=== PATIENT | female | born 1990 | race Caucasian/White ===

== ENCOUNTER 2018-02-01 11:33 | Inpatient (IN) ==
[2018-02-01] MEDS ORDERED: MEPERIDINE 50 MG/1 ML VIAL IM ONE (12:46)
[2018-02-01] MEDS ORDERED: ONDANSETRON 4 MG/2 ML VIAL IV PRN ×2 (15:55→19:34)
[2018-02-01] MEDS ORDERED: MEPERIDINE 50 MG/1 ML VIAL IV PRN (15:56)
[2018-02-01] MEDS ORDERED: LACTATED RINGERS 1,000 ML IV SCH ×2 (16:00→20:00)
[2018-02-01] MEDS ORDERED: CITRIC ACID/SODIUM CITRATE 30 ML UDCUP PO ONE (19:38)
[2018-02-01] MEDS ORDERED: PROMETHAZINE 25 MG/1 ML VIAL IM ONE (19:38)
[2018-02-01] MEDS ORDERED: FAMOTIDINE 20 MG/2 ML VIAL IV ONE (19:38)
[2018-02-01] MEDS ORDERED: ePHEDrine 50 MG/ML AMP IV PRN (19:38)
[2018-02-01] MEDS ORDERED: diphenhydrAMINE 50 MG/1 ML VIAL IV PRN ×2 (19:38)
[2018-02-01] MEDS ORDERED: LACTATED RINGERS 1,000 ML IV ONE (19:38)
[2018-02-01] MEDS ORDERED: hydrOXYzine HCL 25 MG/1 ML VIAL IM PRN (19:38)
[2018-02-01] MEDS ORDERED: fentaNYL 2 MCG/ROPIV 0.2% EPID 150 ML EPIDURAL SCH (20:00)
[2018-02-01 20:11] LABS: Basophils % 0.2 % (0.0-0.8); Hematocrit 38.4 VOL% (35.7-47.0); Hemoglobin 13.3 GM/DL (12.0-16.0); Immature Granulocytes % 0.5 %; Immature Granulocytes Absolute 0.09 #; Lymphocytes # 1.8 10*3/uL (1.4-4.0); Lymphocytes % 9.6 % (21.3-54.2); Mean Corpuscular HGB Conc 34.6 GM/DL (32-36); Mean Corpuscular Hemoglobin 30 PG (27-34); Mean Corpuscular Volume 87.9 FL (87-102); Mean Platelet Volume 11.5 FL (9.6-12.0); Monocytes # 0.5 10*3/uL (0.11-0.8); Monocytes % 2.8 % (1.7-12.7); Neutrophils # 15.9 10*3/uL (1.4-7.4); Neutrophils % 86.9 % (38.7-73.9); Platelet Count 251 T/CUMM (130-400); Red Blood Count 4.37 MC/CUMM (3.8-5.5); Red Cell Distribution Width 13.5 % (9.3-17.3); White Blood Count 18.3 T/CUMM (4-12)
[2018-02-01 20:54] LABS: Albumin 3.2 G/DL (3.4-5.0); Bilirubin,Total 1.1 MG/DL (0.2-1.0); Calcium 9.2 MG/DL (8.5-10.1); Osmolality,Calculated 269.8 MOS/KG (273-304); Potassium 4.4 MMOL/L (3.5-5.1); Total Protein 7.4 G/DL (6.4-8.3)
[2018-02-01] MEDS: OXYTOCIN/LR 20 UNIT/1,000 ML BAG IV SCH (21:50)
[2018-02-01 22:18] LABS: Apearance,Urine CLEAR (Clear); Bilirubin,Urine Negative (Negative); Blood, Urine Negative (Negative); Glucose,Urine (UA) Negative (Negative); Ketones,Urine 20 mg/dL (Negative); Mucus,Urine Occasional /LPF (Occasional); Nitrite,Urine Negative (Negative); Protein,Urine Negative; RBC,Urine 1 /HPF (0-4); Squamous Epithelial Cell,Urine Occasional /HPF (0-10); Urine Color Yellow (Yellow); Urine Specific Gravity 1.021 (1.001-1.035); Urine Urobilinogen < 2.0 EU/DL (0.2-1.0); WBC,Urine 1 /HPF (0-6)
[2018-02-02] MEDS ORDERED: LANOLIN 50% CREAM 0.3 OZ TUBE TOP PRN (00:16)
[2018-02-02] MEDS ORDERED: ACETAMINOPHEN 325 MG TABLET PO PRN (00:16)
[2018-02-02] MEDS ORDERED: OXYTOCIN/LR 20 UNIT/1,000 ML BAG IV ONE (00:16)
[2018-02-02] MEDS ORDERED: RHO(D) IMMUNE GLOBULIN 300 MCG SYRINGE IM ONE (00:16)
[2018-02-02] MEDS ORDERED: WITCH HAZEL PADS 100/JAR TOP PRN (00:16)
[2018-02-02] MEDS ORDERED: BISACODYL 10 MG SUPP RECTAL PRN (00:16)
[2018-02-02] MEDS ORDERED: MEASLES/MUMPS/RUBELLA VACCINE 0.5 ML VIAL SUBCUT ONE (00:16)
[2018-02-02] MEDS ORDERED: BENZOCAINE 20%/MENTHOL 0.5% SPRAY 56 GM CAN TOP PRN (00:16)
[2018-02-02] MEDS ORDERED: DIPH/TET/ACEL PERT BOOSTER VACCINE 0.5 ML VIAL IM ONE (00:16)
[2018-02-02] MEDS ORDERED: HYDROCORTISONE 2.5% RECTAL CREAM 30 GM TUBE TOP PRN (00:16)
[2018-02-02] MEDS ORDERED: oxyCODONE/ACETAMINOPHEN 5-325 MG TABLET PO PRN ×2 (00:16)
[2018-02-02] MEDS ORDERED: ONDANSETRON 4 MG/2 ML VIAL IV PRN (00:16)
[2018-02-02] MEDS: OXYTOCIN/LR 20 UNIT/1,000 ML BAG IV SCH (02:59)
[2018-02-02 06:05] LABS: Basophils % 0.2 % (0.0-0.8); Eosinophils % 0.1 % (0.00-10.9); Hematocrit 30.2 VOL% (35.7-47.0); Immature Granulocytes % 0.5 %; Immature Granulocytes Absolute 0.08 #; Lymphocytes # 2.7 10*3/uL (1.4-4.0); Lymphocytes % 15.4 % (21.3-54.2); Mean Corpuscular HGB Conc 35.1 GM/DL (32-36); Mean Corpuscular Hemoglobin 30 PG (27-34); Mean Corpuscular Volume 86.5 FL (87-102); Mean Platelet Volume 11.6 FL (9.6-12.0); Monocytes # 1.2 10*3/uL (0.11-0.8); Monocytes % 6.6 % (1.7-12.7); Neutrophils # 13.5 10*3/uL (1.4-7.4); Neutrophils % 77.2 % (38.7-73.9); Platelet Count 213 T/CUMM (130-400); Red Cell Distribution Width 13.6 % (9.3-17.3); White Blood Count 17.5 T/CUMM (4-12)
[2018-02-02] MEDS: IBUPROFEN 800 MG TABLET PO PRN ×2 (06:19→17:37)
[2018-02-02 06:31] LABS: Hemoglobin 10.6 GM/DL (12.0-16.0); Red Blood Count 3.49 MC/CUMM (3.8-5.5)
[2018-02-02] MEDS ORDERED: METOPROLOL SUCCINATE XL 50 MG TABLET PO SCH (09:00)
[2018-02-02] MEDS ORDERED: busPIRone 15 MG TABLET PO SCH (09:00)
[2018-02-02] MEDS: DOCUSATE SODIUM 100 MG CAPSULE PO SCH ×2 (09:19→21:51)
[2018-02-02] MEDS: MULTIVITAMIN (PRENATAL) TABLET PO SCH (09:20)
[2018-02-02] MEDS ORDERED: MEPERIDINE 50 MG/1 ML VIAL IM ONE (11:51)
[2018-02-02] MEDS ORDERED: FUROSEMIDE 40 MG/4 ML VIAL IV ONE (13:59)
[2018-02-02] MEDS: LORazepam 1 MG TABLET PO PRN (14:42)
[2018-02-02] MEDS: busPIRone 15 MG TABLET PO SCH (21:52)
[2018-02-03 06:32] LABS: Basophils # 0.1 10*3/uL (0.0-0.2); Basophils % 0.3 % (0.0-0.8); Eosinophils # 0.1 10*3/uL (0.0-0.87); Eosinophils % 0.9 % (0.00-10.9); Hematocrit 27.9 VOL% (35.7-47.0); Hemoglobin 9.6 GM/DL (12.0-16.0); Immature Granulocytes % 0.5 %; Immature Granulocytes Absolute 0.08 #; Lymphocytes # 3.6 10*3/uL (1.4-4.0); Lymphocytes % 23.5 % (21.3-54.2); Mean Corpuscular HGB Conc 34.4 GM/DL (32-36); Mean Corpuscular Hemoglobin 31 PG (27-34); Mean Corpuscular Volume 88.6 FL (87-102); Mean Platelet Volume 11.1 FL (9.6-12.0); Monocytes # 1.1 10*3/uL (0.11-0.8); Monocytes % 7.5 % (1.7-12.7); Neutrophils # 10.2 10*3/uL (1.4-7.4); Neutrophils % 67.3 % (38.7-73.9); Platelet Count 213 T/CUMM (130-400); Red Blood Count 3.15 MC/CUMM (3.8-5.5); White Blood Count 15.1 T/CUMM (4-12)
[2018-02-03 06:49] LABS: Calcium 8.6 MG/DL (8.5-10.1); Potassium 3.5 MMOL/L (3.5-5.1)
[2018-02-03] MEDS: DOCUSATE SODIUM 100 MG CAPSULE PO SCH (08:52)
[2018-02-03] MEDS: busPIRone 15 MG TABLET PO SCH (08:53)
[2018-02-03] MEDS: MULTIVITAMIN (PRENATAL) TABLET PO SCH (08:53)
[2018-02-03] MEDS ORDERED: METOPROLOL SUCCINATE XL 50 MG TABLET PO SCH (09:00)
[2018-02-03 11:31] VITALS: BP 126/71
[2018-02-03] MEDS: LORazepam 1 MG TABLET PO PRN (14:00)
== END 2018-02-03 15:10 | disposition home or self-care (01) | DRG 774 ==
LOC: N.LDOUT 11:33 → N.LD 12:59 → N.OB 02-02 04:57
PROVIDERS: ADMIT Specialist; ATTEND Specialist

== ENCOUNTER 2020-03-19 05:21 | Inpatient (IN) ==
[2020-03-19] MEDS ORDERED: ONDANSETRON 4 MG/2 ML VIAL IV PRN ×2 (05:36→11:11)
[2020-03-19] MEDS ORDERED: BUTORPHANOL 2 MG/ML VIAL IV PRN (05:36)
[2020-03-19] MEDS ORDERED: MEPERIDINE 50 MG/1 ML VIAL IV PRN (05:36)
[2020-03-19] MEDS ORDERED: ePHEDrine 50 MG/ML VIAL IV PRN (05:39)
[2020-03-19] MEDS ORDERED: CITRIC ACID/SODIUM CITRATE 30 ML UDCUP PO ONE (05:39)
[2020-03-19] MEDS ORDERED: FAMOTIDINE 20 MG/2 ML VIAL IV ONE (05:39)
[2020-03-19] MEDS ORDERED: ONDANSETRON 4 MG/2 ML VIAL IV ONE (05:39)
[2020-03-19] MEDS ORDERED: NALOXONE 0.4 MG/ML VIAL IV PRN (05:39)
[2020-03-19] MEDS: LACTATED RINGERS 1,000 ML IV PRN ×2 (05:53→06:56)
[2020-03-19] MEDS ORDERED: fentaNYL 2 MCG/ROPIV 0.2% EPID 100 ML EPIDURAL SCH (06:00)
[2020-03-19 06:10] LABS: Basophils # 0.1 10*3/uL (0.0-0.2); Basophils % 0.3 % (0.0-0.8); Eosinophils # 0.2 10*3/uL (0.0-0.87); Eosinophils % 1.2 % (0.00-10.9); Hematocrit 37.6 VOL% (35.7-47.0); Hemoglobin 12.1 GM/DL (12.0-16.0); Immature Granulocytes % 0.5 %; Immature Granulocytes Absolute 0.09 #; Lymphocytes # 3.4 10*3/uL (1.4-4.0); Lymphocytes % 19.5 % (21.3-54.2); Mean Corpuscular HGB Conc 32.2 GM/DL (32-36); Mean Corpuscular Volume 94.7 FL (87-102); Mean Platelet Volume 10.8 FL (9.6-12.0); Monocytes % 8.3 % (1.7-12.7); Neutrophils % 70.2 % (38.7-73.9); Platelet Count 273 T/CUMM (130-400); Red Blood Count 3.97 MC/CUMM (3.8-5.5); Red Cell Distribution Width 14.5 % (9.3-17.3); White Blood Count 17.3 T/CUMM (4-12)
[2020-03-19] MEDS ORDERED: OXYTOCIN 20 UNIT in SODIUM CHLORIDE 0.9% 1,000 ML IV SCH (06:30)
[2020-03-19 06:40] LABS: Bilirubin,Total 0.6 MG/DL (0.2-1.0); Calcium 9.9 MG/DL (8.5-10.1); Total Protein 7.9 G/DL (6.4-8.3)
[2020-03-19 08:14] LABS: Apearance,Urine CLEAR (Clear); Bilirubin,Urine Negative (Negative); Blood, Urine Small mg/dL (Negative); Glucose,Urine (UA) Negative (Negative); Ketones,Urine Negative (Negative); Mucus,Urine Occasional /LPF (Occasional); Nitrite,Urine Negative (Negative); Protein,Urine Negative; Squamous Epithelial Cell,Urine Occasional /HPF (0-10); Urine Color Straw (Yellow); Urine Specific Gravity 1.008 (1.001-1.035); Urine Urobilinogen < 2.0 EU/DL (0.2-1.0)
[2020-03-19] MEDS ORDERED: miSOPROStoL 200 MCG TABLET ONE (09:56)
[2020-03-19] MEDS ORDERED: TRANEXAMIC ACID 1,000 MG/10 ML VIAL ONE (09:56)
[2020-03-19] MEDS ORDERED: METHYLERGONOVINE 0.2 MG/1 ML AMP ONE (09:56)
[2020-03-19] MEDS ORDERED: CARBOPROST TROMETHAMINE 250 MCG/ML AMP IM ONE (09:56)
[2020-03-19] MEDS ORDERED: RHO(D) IMMUNE GLOBULIN 300 MCG SYRINGE IM ONE (11:11)
[2020-03-19] MEDS ORDERED: ACETAMINOPHEN 325 MG TABLET PO PRN (11:11)
[2020-03-19] MEDS ORDERED: WITCH HAZEL PADS 100/JAR TOP PRN (11:11)
[2020-03-19] MEDS ORDERED: LANOLIN 50% CREAM 0.3 OZ TUBE TOP PRN (11:11)
[2020-03-19] MEDS ORDERED: BENZOCAINE 20%/MENTHOL 0.5% SPRAY 56 GM CAN TOP PRN (11:11)
[2020-03-19] MEDS ORDERED: HYDROCORTISONE 2.5% RECTAL CREAM 30 GM TUBE TOP PRN (11:11)
[2020-03-19] MEDS ORDERED: IBUPROFEN 800 MG TABLET PO PRN (11:11)
[2020-03-19] MEDS ORDERED: DIPH/TET/ACEL PERT BOOSTER VACCINE 0.5 ML VIAL IM ONE (11:11)
[2020-03-19] MEDS ORDERED: BISACODYL 10 MG SUPP RECTAL PRN (11:11)
[2020-03-19] MEDS ORDERED: OXYTOCIN 20 UNIT in SODIUM CHLORIDE 0.9% 1,000 ML IV ONE (11:11)
[2020-03-19] MEDS ORDERED: oxyCODONE/ACETAMINOPHEN 5-325 MG TABLET PO PRN ×2 (11:11)
[2020-03-19] MEDS ORDERED: MEASLES/MUMPS/RUBELLA VACCINE 0.5 ML VIAL SUBCUT ONE (11:11)
[2020-03-19] MEDS: DOCUSATE SODIUM 100 MG CAPSULE PO SCH (20:07)
[2020-03-20 03:30] LABS: Basophils # 0.1 10*3/uL (0.0-0.2); Basophils % 0.4 % (0.0-0.8); Eosinophils # 0.1 10*3/uL (0.0-0.87); Eosinophils % 0.6 % (0.00-10.9); Hematocrit 29.5 VOL% (35.7-47.0); Hemoglobin 9.9 GM/DL (12.0-16.0); Immature Granulocytes % 0.6 %; Immature Granulocytes Absolute 0.11 #; Lymphocytes # 3.4 10*3/uL (1.4-4.0); Lymphocytes % 17.7 % (21.3-54.2); Mean Corpuscular HGB Conc 33.6 GM/DL (32-36); Mean Platelet Volume 10.5 FL (9.6-12.0); Monocytes % 7.6 % (1.7-12.7); Neutrophils % 73.1 % (38.7-73.9); Platelet Count 244 T/CUMM (130-400); Red Blood Count 3.24 MC/CUMM (3.8-5.5); Red Cell Distribution Width 14.6 % (9.3-17.3); White Blood Count 19.1 T/CUMM (4-12)
[2020-03-20 07:31] VITALS: BP 95/54
[2020-03-20] MEDS: DOCUSATE SODIUM 100 MG CAPSULE PO SCH (08:46)
== END 2020-03-20 13:35 | disposition home or self-care (01) | DRG 805 ==
LOC: N.LDOUT 05:21 → N.LD 05:22 → N.OB 13:54
PROVIDERS: ADMIT Specialist; ATTEND Specialist